=== PATIENT | female | born 1995 | race Caucasian/White ===

== ENCOUNTER 2021-08-02 05:53 | Inpatient (IN) | payer OTHER ==
[2021-08-02] VITALS (39 sets, daily range): BP systolic 115–187; BP diastolic 61–103; PULSE 60–90; TEMP 97.3–97.6
--- NOTE | 2021-08-02 06:00 | NUR ---
0600- 39.1 G1L0 arrives on unit with c/o ctx since last mason. Ambulatoryo to LDR3 with spouse. Changes into clean gown. Reports normal movement. Denies any LOF or VB. 0605- EFM explained and placed. Assessment completed by Dinora Morris RN. BP 187/102, and 170/102. Roles on unit and notified. 0625- This RN at bedside and reviews plan of care with patient and spouse. SVE /-3, KIKI. 0641- Roles updated on pt. See physician notification. POC reviewed with pt and spouse who verbalize understanding. Pt tearful. Questions invited and answered. 0705- IV to right wrist. Labs obtained. IVF infusing. 07- Dr. Stout updated on pt. See physician notification. 0745- Plan of care reviewed with pt and spouse. Consent forms explained and signed. 0818- Pitocin augmentation explained. Pitocin started at 2mu per protocol. 0845- Dr. Stout to bedside and reviews plan of care with patient and spouse. 0849- AROM at this time for moderate amount of fluid. Dark in color. Will continue to monitor. Chela care provided, patient wedge left. Requesting epidural. Yaritza Mccollum CRNA notified. LR bolus started. 0915- Pt to edge of bed for epidural placement. FHR difficult to trace due to maternal position. RN remains at bedside adj. EFM. 0921- Epidural placed and single shot at this time by Yaritza Mccollum CRNA. See epidural record. 30- Patient wedge left. Plan of care and safety precautions reviewed, verbalizes understanding. Resting with call light within reach.
[2021-08-02] MEDS ORDERED: PRENATAL TABLET PO (06:23)
[2021-08-02 07:18] LABS: COLLECTION METHOD CLEAN CATCH
[2021-08-02 07:28] LABS: BASO % 0.4 % (0.0-2.0); EOS # 0.1 (0.0-0.7); EOS % 0.6 % (0-4.0); GRAN # 6.5 (1.4-6.5); GRAN % 73.1 % (42.2-75.2); HEMOGLOBIN 12.9 g/dl (12.5-16.0); LYMPH # 1.7 (1.2-3.4); LYMPH % 19.3 % (20.0-51.0); MEAN CELL VOLUME 93 fl (80.0-100.0); MEAN CORPUSCULAR HEMOGLOBIN 33 pg (27.0-31.0); MEAN CORPUSCULAR HGB CONC 36 g/dl (33.0-37.0); MEAN PLATELET VOLUME 12.2 fl (7.4-10.4); MONO # 0.6 (0.1-0.6); MONO % 6.2 % (1.7-9.3); PLATELET COUNT 173 K/mm3 (130-400); RED BLOOD COUNT 3.88 M/mm3 (4.10-5.30); REDCELL DISTRIBUTION WIDTH-CV 11.9 % (11.5-14.5)
[2021-08-02 07:35] LABS: ALBUMIN 3.5 gm/dL (3.5-5.0); BILIRUBIN,TOTAL 0.3 mg/dL (0.0-1.0); CALCIUM 8.6 mg/dL (8.4-10.2); CREATININE, serum 0.86 (0.52-1.25); POTASSIUM 4.1 mmol/L (3.4-5.0); TOTAL PROTEIN 6.5 gm/dL (6.4-8.2)
[2021-08-02 07:37] LABS: MUCOUS Present /lpf; PH 6 (5-8); SQUAMOUS EPITHELIAL 0-2 /hpf; URINE APPEARANCE Clear; URINE BACTERIA None Seen /hpf; URINE BILIRUBIN Negative (NEGATIVE); URINE BLOOD Negative (NEGATIVE); URINE COLOR Yellow; URINE GLUCOSE Negative (NEGATIVE); URINE KETONE Negative (NEGATIVE); URINE LEUKOCYTE ESTERASE Negative (NEGATIVE); URINE NITRATE Negative (NEGATIVE); URINE PROTEIN(semi-quant) 3+ (NEGATIVE); URINE RBC None Seen /hpf; URINE UROBILINOGEN Negative (NEGATIVE); URINE WBC 0-2 /hpf
[2021-08-02 07:39] LABS: HEMATOCRIT 35.9 % (37.0-47.0)
--- NOTE | 2021-08-02 10:00 | NUR ---
Patient declines COVID test.
--- NOTE | 2021-08-02 12:24 | NUR ---
1224- Dr. Stout to bedside. SVE C/+2. Patient instructed on pushing with ctx. 1230- Patient begins to push with contractions with RN at bedside. Moves vertex well. 1245- Dr. Stout requested at bedside for delivery. 1253- Spontaneous vaginal delivery of viable femal . To mother's chest where dried and stimulated by nursery RN. Pitocin paused. 1254- Cord clamped x2 and cut by FOB. Care of assumed by Frederick Jose RN. 1257- Spontaneous and intact delivery of placenta. Pitocin resumed at 333ml/hr per protocol. Right periurethral, and bilat hymen lac reparied by Dr. Stout. Clot manually removed by Dr. Stout. 1258- Fundus firm, midline, and bleeding minimal. Pads changed and ice pack to perinuem. Plan of care and safety precautions reviewed. See doctor dictation, anesthesia record, and nurses notes.
[2021-08-03 00:25] VITALS: BP 153/89; PULSE 70; TEMP 97.9
[2021-08-03 08:14] VITALS: BP 142/97; PULSE 69; TEMP 98.3
--- NOTE | 2021-08-03 08:52 | NUR ---
Initial visit attempt; Security Control Assessor left card offering congratulations and God's blessings for the of their daughter. Nurse with patient.
[2021-08-03 12:34] VITALS: BP 157/92; PULSE 74; TEMP 98.1
[2021-08-03 16:16] VITALS: BP 138/74; PULSE 64; TEMP 98.7
[2021-08-03 20:30] VITALS: BP 133/83; PULSE 86; TEMP 98.1
[2021-08-04] MEDS ORDERED: PROCARDIA XL 3030 MG PO (07:57)
[2021-08-04] MEDS ORDERED: IBU600 MG PO (07:57)
[2021-08-04 08:14] VITALS: BP 130/81; PULSE 76; TEMP 98.1
== END 2021-08-04 09:05 | disposition home or self-care (01) | DRG 807 ==
LOC: LDRO 05:53 → OB 07:49 → LDR 07:49 → OB 16:00
PROVIDERS: Obstetrics & Gynecology; ADMIT Obstetrics & Gynecology
PROC: 10E0XZZ Delivery of Products of Conception, External Approach (ICD-10-PCS; principal; 2021-08-02)
PROC: 10907ZC Drainage of Amniotic Fluid, Therapeutic from Products of Conception, Via Natural or Artificial Opening (ICD-10-PCS; 2021-08-02)
PROC: 0UQMXZZ Repair Vulva, External Approach (ICD-10-PCS; 2021-08-02)
PROC: 0HQ9XZZ Repair Perineum Skin, External Approach (ICD-10-PCS; 2021-08-02)
DX: O14.94 Unspecified pre-eclampsia, complicating childbirth (principal); Z37.0 Single live birth; O99.824 Streptococcus B carrier state complicating childbirth; O99.02 Anemia complicating childbirth; O99.713 Diseases of the skin and subcutaneous tissue complicating pregnancy, third trimester; O69.81X0 Labor and delivery complicated by cord around neck, without compression, not applicable or unspecified; O71.82 Other specified trauma to perineum and vulva; O70.0 First degree perineal laceration during delivery; D64.9 Anemia, unspecified; L28.2 Other prurigo; Z3A.39 39 weeks gestation of pregnancy
CPT/HCPCS: J0360; J2540; J2590; J2795; J7120

== ENCOUNTER → 2021-08-09 | Outpatient (CLI) | payer OTHER ==
[~2021-08-09] MED LIST: IBU600 MG PO; PRENATAL TABLET PO; PROCARDIA XL 3030 MG PO
--- NOTE | 2021-08-09 14:59 | NUR ---
Pt, Smiley Madera, presents for outpatient consult with one week old baby girl, Karime Madera, and pt's spouse Evgeny. Pt contacted this LC with latch concerns and sore right nipple. Karime was born on [birth year] and weighed 6#4.5oz (2850 gms). PT states Karime was seen by Dr. Smith on 08/07/21 and weighed 6#4oz. Today Karime weighs 6#3.3oz (2815 gms). Pt states she nurses Karime q 2-2.5 hours in the daytime on the right side and bottle feeds two or three 1-3oz EBM bottles at [facility]. Pt pumps the left breast every other feeding as she cannot get Karime to latch there. This provides the EBM bottles at [facility]. At this appointment, pt is advised to compress the areola, using the "sandwich" maneuver to get a deeper latch. She latches easily and quickly to the left breast with frequent swallows. She is interrupted on the left side so pt could practice latching on the right side, which is sore. Pt handles latch well, denying pain. After nursing bilaterally, Karime has a total weight gain of 2.9oz (80 gms). Discussion about one breast per feeding based on high milk supply. Alternating sides per feeding to allow the right breast a break, and discontinuing pumping on a regular basis. Pt and spouse verbalize understanding, questions invited and answered. F/U: as scheduled with Dr. Smith for one month appt.
== END ==
LOC: LAC 13:55
DX: Z39.1 Encounter for care and examination of lactating mother (principal); Z71.89 Other specified counseling